=== PATIENT | female | born 1945 | race Caucasian/White ===

== ENCOUNTER → 2022-02-21 | Outpatient (CLI) | payer OTHER | LOC: KOH-I 09:28 | DX: M79.674 Pain in right toe(s) (principal); M19.071 Primary osteoarthritis, right ankle and foot | CPT/HCPCS: 73630 ==

== ENCOUNTER 2022-06-12 13:05 | Emergency (ER) | payer OTHER ==
[2022-06-12 17:49] LABS: RED BLOOD COUNT 4.41 M/UL (4.00-5.10); WHITE BLOOD COUNT 7.2 K/UL (4.5-11.0)
[2022-06-12 18:18] LABS: BUN/CREATININE RATIO 28 (0-10)
[2022-06-12] MEDS ORDERED: CYCLOBENZAPRINE15 MG PO (19:52)
[2022-06-12] MEDS ORDERED: HYDROCODON-ACE1 EAC4 PO (19:52)
== END 2022-06-12 20:08 | disposition home or self-care (01) ==
LOC: ER1 13:05
PROVIDERS: Emergency Medicine
DX: M54.42 Lumbago with sciatica, left side (principal); I10 Essential (primary) hypertension; Z88.0 Allergy status to penicillin; Z88.5 Allergy status to narcotic agent
CPT/HCPCS: 72131; 73502; 80053; 85025; 96374; 96375; 99284; J1170; J2270; J2405